=== PATIENT | female | born 1970 | race Caucasian/White ===

== ENCOUNTER 2024-05-15 13:34 | Emergency (ER) | payer MEDICAID, SELFPAY ==
[2024-05-15 13:35] VITALS: BP 181/93; PULSE 84; RESP 20; TEMP 36.8; O2SAT 97
[2024-05-15 13:57] VITALS: PULSE 90; RESP 19; O2SAT 98
--- NOTE | 2024-05-15 14:32 | XR_ITS ---
Examination: PA lateral chest 2 views TECHNIQUE: Upright PA lateral chest 2 views Exam date and time: May 15, 2024 1800 hours Comparison June 29, 2023 INDICATIONS: High blood pressure the last 2 days. FINDINGS: COPD with prominent hyperexpansion Normal heart size No pneumonia or pulmonary edema IMPRESSION: COPD with prominent hyperexpansion
--- NOTE | 2024-05-15 14:32 | EKG_ITS ---
[facility] Test Date: 2024-05-15 Pat Name: DESIREE LOPEZ Department: Room: - Gender: Female [employer] Up Assembler: : 1970 Requested By: Enoc Delaney Order Number: [id number] Reading MD: Enoc Delaney Measurements Intervals [place] Rate: 88 P: 75 MI: 137 QRS: 66 QRSD: 88 T: 39 QT: 366 QTc: 444 Interpretive Statements SINUS RHYTHM MINIMAL VOLTAGE CRITERIA FOR LVH, CONSIDER NORMAL VARIANT [MEETS CRITERIA IN ONE OF: R(aVL), S(V1), R(V5), R(V5/V6)+S(V1)] Compared to ECG 06/26/2023 11:44:24 Sinus tachycardia no longer present T-wave abnormality no longer present /store/S0/[id number]/ecg/[id number].pdf
--- NOTE | 2024-05-15 14:32 | PD.EDRME ---
Rapid Medical Screening Exam RME Arrival date/time: 05/15/24 13:34 53-year-old female with a history of COPD presents to the emergency room with a chief complaint of feeling clammy, elevated blood pressure, and palpitations x1 day. I have greeted and performed a focused initial assessment of this patient. A comprehensive ED assessment and evaluation of the patient, analysis of all test results, and completion of the medical decision making process will be conducted by additional ED providers. Chief Complaint: Recheck/Abnormal Lab/Rx Time Seen by Provider: 05/15/24 14:12 Vital signs: Vital Signs Temperature 98.2 F 05/15/24 13:35 Pulse Rate 84 05/15/24 13:35 Respiratory Rate 20 05/15/24 13:35 Blood Pressure 181/93 H 05/15/24 13:35 Pulse Oximetry (%) 97 05/15/24 13:35 Oxygen Delivery Method Room Air 05/15/24 13:35 Vital signs reviewed by provider: Yes
[2024-05-15 15:00] LABS: Basophils # (Auto) 0.1 Thou/mm3 (0.0-0.2); Basophils % (Auto) 1 % (0-2.5); Eosinophils # (Auto) 0.1 Thou/mm3 (0.0-0.5); Eosinophils % (Auto) 2 % (0-10); Hematocrit 39.5 % (36.0-46.0); Hemoglobin 13.7 g/dL (12.0-16.0); Immature Granulocytes % (Auto) 1 % (0-0); Immature Granulocytes Auto 0.05 Thou/mm3 (0.00-0.00); Lymphocytes # (Auto) 1.1 Thou/mm3 (1.0-4.8); Lymphocytes % (Auto) 13 % (10-50); Mean Corpuscular HGB Conc 34.7 g/dl (31.0-37.0); Mean Corpuscular Hemoglobin 29.8 pg (25.0-35.0); Mean Corpuscular Volume 86 fL (80-100); Monocytes # (Auto) 0.8 Thou/mm3 (0.0-0.8); Monocytes % (Auto) 10 % (0-12); Neutrophils # (Auto) 5.9 Thou/mm3 (1.8-7.7); Neutrophils % (Auto) 74 % (37-80); Nucleated Red Blood Cell % 0 /100 WBC (0); Platelet Count 223 Thou/mm3 (140-440); RDW Standard Deviation 41.2 fL (36.4-46.3); Red Blood Count 4.59 Miln/mm3 (4.00-5.20)
[2024-05-15 15:17] LABS: B-Type Natriuretic Peptide 22 pg/mL (0-100)
[2024-05-15 15:24] LABS: Alanine Aminotransferase 63 U/L (10-49); Albumin, Serum 4.9 gm/dL (3.5-5.0); Albumin/Globulin Ratio 1.8 (1.2-2.2); Alkaline Phosphatase 105 U/L (46-116); Anion Gap 7 (7-16); Aspartate Amino Transferase 108 U/L (0-34); BUN/Creatinine Ratio 10 Ratio (12-20); Bilirubin,Total 0.6 mg/dL (0.3-1.2); Blood Urea Nitrogen 6 mg/dL (9-23); Calcium 9.7 mg/dL (8.3-10.6); Calcium (Corrected) 9.7 mg/dL (8.5-10.1); Carbon Dioxide 27.4 mMol/L (20.0-31.0); Chloride 96 mMol/L (98-107); Creatinine (Component) 0.6 mg/dL (0.6-1.3); Globulin 2.8 gm/dL (2.3-3.5); Glucose 130 mg/dL (74-106); Magnesium 1.9 mg/dL (1.6-2.6); Osmolality,Calculated 260 (275-295); Potassium 4.4 mMol/L (3.4-5.1); Sodium 130 mMol/L (136-145); Total Protein 7.7 gm/dL (5.7-8.2); Troponin I < 0.020 ng/mL (0.0-0.045); eGFR > 60 See Note
--- NOTE | 2024-05-15 18:24 | PD.EDRECHK ---
ED Recheck Abnl Lab Rx-RME/HPI General Chief Complaint: Recheck/Abnormal Lab/Rx Stated Complaint: SOB HIGH BLOOD PRESSURE Time Seen by Provider: 05/15/24 14:12 Arrival date/time: 05/15/24 13:34 RME / HPI RME / HPI narrative: 05/15/24 13:34 53-year-old female with a history of COPD presents to the emergency room with a chief complaint of feeling clammy, elevated blood pressure, and palpitations x1 day. I have greeted and performed a focused initial assessment of this patient. A comprehensive ED assessment and evaluation of the patient, analysis of all test results, and completion of the medical decision making process will be conducted by additional ED providers. ------- This section includes all my notes and documentations, including HPI, PE, and ED course. Gilberto Ortega MD HPI: 53yo female with a history of COPD on 2L presents to the ED for a chief complaint of elevated blood pressure. Patient states she's been feeling clammy and more short of breath than normal, reporting she checked her blood pressure and was noted to be high, so she came in for evaluation. She reports associated productive cough with clearish-yellow phlegm. She denies any fever, chills or any other associated symptoms. She is not on antihypertensives. No other complaints reported. ROS: All negative except as documented in HPI. Physical Exam: General: Alert and oriented. Mild respiratory distress. Eyes: Conjunctivae and lids clear. ENT: No nasal congestion. Neck: Supple. Heart: RRR. Lungs: In mild respiratory distress. Decreased air movement. Diffuse wheezing. No rhonchi, rales. Abdomen: Soft and nontender. Legs: No clubbing, cyanosis, edema. Skin: Warm and dry. Neuro: Alert and oriented X 3. I reviewed all diagnostic test results. At this point, diagnoses include COPD. Treatment here included Prednisone, Cloniding, Levalbuterol, and NS Rt Solution. Significant improvement noted. Recommended a trial of outpatient treatment. Based on my best medical judgment, made decision no further evaluation or treatment indicated at this time. Patient understands and agrees to the discharge instructions customized and printed, see below. Discharge instructions from Dr. Ortega: --No physical exertion for 3 days to help rest the lungs. ?No smoking or exposure to smoking or pets or dust or cold air. --Zithromax to kill the germs causing the bronchitis. --Prednisone to help decrease the swelling in the airways. --Albuterol 2 puffs every 4-6 hours for 3 days to help keep the airways open. Then as needed for cough or shortness of breath. --Clonidine 0.1 mg every morning and every night to decrease BP. --See a private doctor on 05/17/2024 for recheck and further care. --Seek immediate medical care with worsening or with any concerns. Gilberto Ortega MD Related Data Home Medications ?Medication ?Instructions ?Recorded ?Confirmed duloxetine 60 mg capsule,delayed 60 mg PO BID Depression #0 caps 10/28/14 06/27/23 release (Cymbalta) albuterol sulfate 90 mcg/actuation 2 puff inhalation [id number] PRN 06/27/23 06/27/23 aerosol inhaler (ProAir HFA) Wheezing clonazepam 0.5 mg tablet 0.5 mg PO QDAY 06/27/23 06/27/23 fluticasone furoate 200 1 mcg inhalation DAILY asthma 06/27/23 06/27/23 mcg/actuation blister powder for inhalation (Arnuity Ellipta) hydrocodone 10 mg-acetaminophen 1 tab PO DAILY 06/27/23 06/27/23 325 mg tablet Previous Rx's ?Medication ?Instructions ?Recorded albuterol sulfate 90 mcg/actuation 2 puff inhalation QID PRN 07/01/23 aerosol inhaler shortness of breath or wheezing #8.5 grams fluticasone furoate 200 1 inh inhalation QDAY #30 ea 07/01/23 mcg/actuation blister powder for inhalation (Arnuity Ellipta) azithromycin 500 mg tablet 500 mg PO QDAY 3 days #3 tabs 05/15/24 (Zithromax TRI-GIGI) clonidine HCl 0.1 mg tablet 0.1 mg PO BID #60 tabs 05/15/24 prednisone 20 mg tablet 40 mg PO BID 3 days #12 tabs 05/15/24 Allergies Allergy/AdvReac Type Severity Reaction Status Date / Time Sulfa (Sulfonamide Allergy Severe LIPS Verified 02/03/21 15:03 Antibiotics) SWELL, VOMITING saccharin Allergy Mild Nausea Verified 06/29/23 10:39 Review of Systems Review of Systems Systems Reviewed: All systems reviewed, normal except as documented ED Exam Narrative Physical exam: As noted in HPI. Course Quality Measures none Orders Category Date Time Status EKG (ED ONLY) *Do not use* NOW Care 05/15/24 14:32 Completed EKG (ED Only) Stat Exams 05/15/24 14:32 Draft XR chest 2V Stat Exams 05/15/24 14:32 Completed B-Type Natriuretic Peptide Stat Lab 05/15/24 14:55 Completed CBC Stat Lab 05/15/24 14:55 Completed Comprehensive Metabolic Panel Stat Lab 05/15/24 14:55 Completed Drug Screen,Urine Stat Lab 05/15/24 18:29 Received Magnesium Stat Lab 05/15/24 14:55 Completed Troponin I Stat Lab 05/15/24 14:55 Completed Urinalysis Stat Lab 05/15/24 18:29 Completed Levalbuterol Rt [Xopenex Rt Ellie] Med 05/15/24 18:29 Discontinued 1.25 mg INH X1 ONE Sodium Chloride Rt Ellie 0.9% [NS Rt Ellie 0.9%] Med 05/15/24 18:29 Active 6 ml INH PRN PRN cloNIDine HCL [Catapres] Med 05/15/24 18:29 Discontinued 0.3 mg PO X1 ONE predniSONE Med 05/15/24 18:29 Discontinued 80 mg PO X1 ONE Vital Signs Vital signs: Vital Signs Temperature 98.2 F 05/15/24 13:35 Pulse Rate 84 05/15/24 13:35 Respiratory Rate 20 05/15/24 13:35 Blood Pressure 181/93 H 05/15/24 13:35 Pulse Oximetry (%) 97 05/15/24 13:35 Oxygen Delivery Method Room Air 05/15/24 13:35 Recheck / Abnormal Lab / Rx MDM Narrative MDM Narrative:: Scribe Attestation: 05/15/24 Diane Villafana am scribing for and in the presence of Dr. Ortega. Patient data External records reviewed:: [facility] previous records (Per chart review, patient was admitted here on 06/26/23 for COPD.) Clinical information provided by:: patient Social determinants that could affect healthcare access:: none Patient has the following chronic illnesses:: COPD How is presenting disease/condition affected by chronic disease/condition?: exacerbated by Evaluation data The following diagnostics were reviewed and interpreted by me:: lab results, radiology exam(s) and EKG tracing(s) Lab and/or radiology exams considered but not ordered:: none Interpretation Summary: COPD exacerbation Medications / Prescriptions Medications or Prescriptions considered but not ordered:: none Medication administrations:: Medication Administration History Sodium Chloride (Sodium Chloride Rt Ellie 0.9% 3 Ml Nebu) 6 ml INH PRN PRN PRN Reason: SOLN Stop: 06/14/24 18:28 Last Admin: 05/15/24 18:47 Dose: 6 ml Documented By: PAR Discontinued Medications Clonidine (Clonidine Hcl 0.1 Mg Tablet) 0.3 mg PO X1 ONE Stop: 05/15/24 18:30 Last Admin: 05/15/24 19:05 Dose: 0.3 mg Documented By: Levalbuterol HCl (Levalbuterol Rt 1.25 Mg/0.5 Ml Nebu) 1.25 mg INH X1 ONE Stop: 05/15/24 18:30 Last Admin: 05/15/24 18:47 Dose: 1.25 mg Documented By: PAR Prednisone (Prednisone 20 Mg Tablet) 80 mg PO X1 ONE Stop: 05/15/24 18:30 Last Admin: 05/15/24 19:05 Dose: 80 mg Documented By: Prednisone, Cloniding, Levalbuterol, NS Rt Solution Consultations Consultation(s) initiated? (list below): No Diagnosis Recheck Differential Diagnosis: other (Pneumonia, COPD exacerbation, COVID, influenza, bronchitis) Most likely diagnosis given after review of the tests above:: COPD exacerbation Admission Indicated Admission indicated?: not indicated Explain why admission is indicated or not indicated:: No criteria for admission. Admission Request Was there a request for admission?: No Disposition Plan Disposition Plan: Discharge Discharge Attestation Discharge Attestation: The patient and all family members were given an opportunity to ask questions and understood the discharge instructions. Discharge instructions specifically effects, indications for sooner follow up or return to the emergency department, and the expected course of current diagnosis. Patient condition: Stable Discharge Plan Plan Patient Disposition: HOME (Self Care) Prescriptions/Referrals Prescriptions/Med Rec: New clonidine HCl 0.1 mg tablet 0.1 mg PO BID Qty: 60 0RF prednisone 20 mg tablet 40 mg PO BID 3 Days Qty: 12 0RF Taper: Prednisone Taper 20 mg DAILY for 2 Days and 0 Hour 10 mg DAILY for 2 Days and 0 Hour 5 mg DAILY for 7 Days and 0 Hour azithromycin [Zithromax TRI-GIGI] 500 mg tablet 500 mg PO QDAY 3 Days Qty: 3 0RF No Action duloxetine [Cymbalta] 60 MG capsule,delayed release(DR/EC) 60 mg PO BID Qty: 0 albuterol sulfate [ProAir HFA] 90 mcg/actuation Hfa Aerosol Inhaler 2 puff INHALATION [id number] PRN (Reason: Wheezing) Arnuity Ellipta 200 mcg/actuation Blister With Device 1 mcg INHALATION DAILY clonazepam 0.5 mg Tablet 0.5 mg PO QDAY hydrocodone-acetaminophen 10-325 mg Tablet 1 tab PO DAILY albuterol sulfate 90 mcg/actuation HFA aerosol inhaler 2 puff inhalation QID PRN (Reason: shortness of breath or wheezing) Qty: 8.5 0RF Arnuity Ellipta 200 mcg/actuation blister with device 1 inh inhalation QDAY Qty: 30 0RF Referrals: Chelsey Walsh PA-C [Primary Care Provider] - In 1 week Problem List Clinical Impression: COPD (chronic obstructive pulmonary disease) Patient/Caregiver Discharge Instructions Discharge Activity: activity as tolerated Education Materials: ED COPD Flare Additional Instructions: Discharge instructions from Dr. Ortega: --No physical exertion for 3 days to help rest the lungs. ?No smoking or exposure to smoking or pets or dust or cold air. --Zithromax to kill the germs causing the bronchitis. --Prednisone to help decrease the swelling in the airways. --Albuterol 2 puffs every 4-6 hours for 3 days to help keep the airways open. Then as needed for cough or shortness of breath. --Clonidine 0.1 mg every morning and every night to decrease BP. --See a private doctor on 05/17/2024 for recheck and further care. --Seek immediate medical care with worsening or with any concerns. Print Language: Czech Stand Alone Forms: Ana Maria Award Info., Patient Portal Info Letter
[2024-05-15 18:31] VITALS: BP 183/108; PULSE 65; RESP 26; TEMP 36.6; O2SAT 100
[2024-05-15] MEDS: LEVALBUTEROL RT 1.25 MG/0.5 ML NEBU INH (18:47)
[2024-05-15] MEDS: SODIUM CHLORIDE RT SOL 0.9% 3 ML NEBU 6 ML INH (18:47)
[2024-05-15 18:50] VITALS: PULSE 98; RESP 18; O2SAT 100
[2024-05-15 18:54] LABS: Collection Type, Urine Clean Catch; RBC,Urine 0 /hpf (0-3)
[2024-05-15 19:04] LABS: Bacteria,Urine Rare; Bilirubin,Urine Negative (Negative); Blood,Urine Negative (Negative); Clarity,Urine Clear (Clear/Hazy); Color,Urine Lt-Yellow (Lt Yel-Yel); Glucose, Urine Negative (Negative); Ketones,Urine 1+ (Negative); Leukocyte Esterase,Urine Positive (Negative); Nitrite,Urine Positive (Negative); PH,Urine 6.5 (5.0-7.0); Protein,Urine Negative (Neg - Trace); Specific Gravity,Urine 1.012 (1.001-1.035); Squamous Epithelial Cell,Urine 1 /hpf (0-5); Urobilinogen,Urine Negative mg/dL (0.0-1.0); WBC,Urine 17 /hpf (0-5)
[2024-05-15 19:05] VITALS: BP 183/108; PULSE 65
[2024-05-15] MEDS: predniSONE 20 MG TABLET 80 MG PO (19:05)
[2024-05-15] MEDS: cloNIDine HCL 0.1 MG TABLET 0.3 MG PO (19:05)
[2024-05-15 19:20] LABS: Amphetamine/Methamp Scrn,U Negative (Negative); Barbiturate Screen,Urine Negative (Negative); Benzodiazepines Screen,Urine Negative (Negative); Benzoylecgonine Screen, Ur Negative (Negative); Fentanyl Screen,Urine Negative (Negative); Opiate Screen,Urine Positive (Negative); THC Screen,Urine Negative (Negative)
== END 2024-05-15 19:45 | disposition home or self-care (01) ==
PROVIDERS: Nurse Practitioner Family; Emergency Provider Emergency Medicine; PCP Physician Assistant
DX: J44.9 Chronic obstructive pulmonary disease, unspecified (principal)
CPT/HCPCS: 36415; 71046; 80053; 80307; 81001; 83735; 83880; 84484; 85025; 93005; 94640; 99283; J7512; A9270

== ENCOUNTER → 2024-10-02 | Outpatient (CLI) | payer MEDICAID, SELFPAY ==
--- NOTE | 2024-10-02 14:30 | XR_ITS ---
Examination: Breast ultrasound, unilateral, left complete Date and time of exam: October 02, 2024 1437 hours INDICATIONS: Left breast pain and swelling beginning a few weeks ago, family history breast cancer, mother, sister Technique: Real-time talbert scale ultrasonographic imaging performed left breast including all 4 quadrants as well as nipple retroareolar and axillary region. Findings: No cystic or solid mass IMPRESSION: BI-RADS Category 1: Negative study
== END | disposition home or self-care (01) ==
LOC: CDIM 14:18
PROVIDERS: PCP Physician Assistant; Referring Provider Physician Assistant; Visit Provider Physician Assistant
DX: N64.4 Mastodynia (principal)
CPT/HCPCS: 76641

== ENCOUNTER 2025-04-02 08:53 | Emergency (ER) | payer MEDICAID, SELFPAY ==
[2025-04-02 08:55] VITALS: BP 181/105; PULSE 77; PULSE 92; RESP 16; RESP 20; TEMP 37.1; O2SAT 95; BMI 23.7
--- NOTE | 2025-04-02 08:57 | PD.EDWEAK ---
ED Weakness RME/HPI General Chief complaint: Syncope / Near Syncope Stated complaint: NEAR SYNCOPAL EPISODE Time Seen by Provider: 04/02/25 08:59 Arrival date/time: 04/02/25 08:53 RME / HPI RME / HPI Narrative: See [facility] for Dr. Ortega's HPI documentation. Related Data Home Medications ?Medication ?Instructions ?Recorded ?Confirmed duloxetine 60 mg capsule,delayed 60 mg PO BID Depression #0 caps 10/28/14 06/27/23 release (Cymbalta) albuterol sulfate 90 mcg/actuation 2 puff inhalation [id number] PRN 06/27/23 06/27/23 aerosol inhaler (ProAir HFA) Wheezing clonazepam 0.5 mg tablet 0.5 mg PO QDAY 06/27/23 06/27/23 fluticasone furoate 200 1 mcg inhalation DAILY asthma 06/27/23 06/27/23 mcg/actuation blister powder for inhalation (Arnuity Ellipta) hydrocodone 10 mg-acetaminophen 1 tab PO DAILY 06/27/23 06/27/23 325 mg tablet Previous Rx's ?Medication ?Instructions ?Recorded albuterol sulfate 90 mcg/actuation 2 puff inhalation QID PRN 07/01/23 aerosol inhaler shortness of breath or wheezing #8.5 grams fluticasone furoate 200 1 inh inhalation QDAY #30 ea 07/01/23 mcg/actuation blister powder for inhalation (Arnuity Ellipta) clonidine HCl 0.1 mg tablet 0.1 mg PO BID #60 tabs 05/15/24 albuterol sulfate 90 mcg/actuation 2 puff inhalation Q6H PRN 04/02/25 aerosol inhaler shortness of breath or wheezing #8.5 grams clonidine HCl 0.1 mg tablet 0.1 mg PO BID #60 tabs 04/02/25 ondansetron 4 mg disintegrating 4 mg PO TID PRN nausea and 04/02/25 tablet vomiting 30 days #10 tabs prednisone 50 mg tablet 50 mg PO BID 2 days #4 tabs 04/02/25 scopolamine base 1 mg over 3 days 1 mg topical .q72 hours PRN 04/02/25 transdermal patch (Transderm-Scop) dizziness or vertigo #4 ea Allergies Allergy/AdvReac Type Severity Reaction Status Date / Time codeine Allergy Severe Abdominal Verified 04/02/25 12:34 Pain Sulfa (Sulfonamide Allergy Severe LIPS Verified 02/03/21 15:03 Antibiotics) SWELL, VOMITING saccharin Allergy Mild Nausea Verified 06/29/23 10:39 Review of Systems Review of Systems Systems Reviewed: All systems reviewed, normal except as documented Past Medical History Past Medical History NEUROLOGIC: Positive Seizures CARDIAC: Positive Cardiac Disorders and Angina RESPIRATORY: Positive Chronic Obstructive Pulmonary Disease (COPD), Bronchitis and Pneumonia GASTROINTESTINAL: Positive Gastroesophageal Reflux Disease MUSCULOSKELETAL: Positive Arthritis and Fibromyalgia PSYCHO/SOCIAL: Positive Depression and Anxiety OTHER HISTORY: Positive Falls Family History FAMILY HISTORY: Negative Family Cardiac Disorders Surgical History SURGICAL: Positive Tonsillectomy Social History SMOKING STATUS: Never smoker SECOND HAND EXPOSURE: Yes ED Exam Narrative Physical exam: See [facility] for Dr. Ortega's physical exam documentation. Course Quality Measures none Orders Category Date Time Status Bedside COVID-19 Antigen Test NOW Care 04/02/25 08:56 Completed Bedside Influenza A&B Antigen Test NOW Care 04/02/25 08:57 Completed EKG (ED ONLY) *Do not use* NOW Care 04/02/25 08:58 Completed Saline [Insert IV] NOW Care 04/02/25 08:57 Completed Straight [In and Out Catheter] X1 Care 04/02/25 08:[address] head/brain wo con Stat Exams 04/02/25 08:58 Completed EKG (ED Only) Stat Exams 04/02/25 08:58 Draft XR chest 1V portable Stat Exams 04/02/25 08:58 Completed ABG [Arterial Blood Gas] Stat Lab 04/02/25 09:37 Completed BNP [B-Type Natriuretic Peptide] Stat Lab 04/02/25 09:30 Completed Bilirubin,Direct Stat Lab 04/02/25 09:30 Completed Blood Culture (Lab) Stat Lab 04/02/25 10:00 Results CBC Stat Lab 04/02/25 09:30 Completed CMP [Comprehensive Metabolic Panel] Stat Lab 04/02/25 09:30 Completed CRP [C-Reactive Protein] Stat Lab 04/02/25 09:30 Completed D-Dimer Stat Lab 04/02/25 09:30 Completed ESR [Sed Rate (ESR)] Stat Lab 04/02/25 09:30 Completed HCG,Qualitative Serum Stat Lab 04/02/25 09:30 Completed Hemoglobin A1C [Glycohemoglobin w (eAG)] Stat Lab 04/02/25 09:30 Completed Lactate (Lactic Acid) Stat Lab 04/02/25 09:30 Completed Magnesium Stat Lab 04/02/25 09:30 Completed Procalcitonin Stat Lab 04/02/25 09:30 Completed TSH [Thyroid Stimulating Hormone] Stat Lab 04/02/25 09:30 Completed Troponin I Stat Lab 04/02/25 09:30 Completed UA, C/S IF [Urinalysis, C/S if Indicated] Stat Lab 04/02/25 10:37 Completed Urine Culture Stat Lab 04/02/25 10:37 Received ACETAMINOPHEN w/COD 300-30 [Tylenol w/Cod #3] Med 04/02/25 12:16 Discontinued 2 tab PO X1 ONE Albuterol/Ipratr Rt Ellie [Duoneb Rt Ellie] Med 04/02/25 08:57 Discontinued 3 ml INH X1 ONE DiphenhydrAMINE INJ [Benadryl Inj] Med 04/02/25 08:57 Discontinued 50 mg IVP X1 STA HYDROcodone*/APAP 5/325 [Hudson 5/325] Med 04/02/25 12:36 Discontinued 2 tab PO X1 ONE MethylPREDNISolone.* [SoluMEDROL Inj] Med 04/02/25 08:57 Discontinued 125 mg IVP X1 ONE Ondansetron Inj [Zofran Inj] Med 04/02/25 08:57 Discontinued 4 mg IVP X1 ONE Ringers Lactated 1000 ml [Lactated Ringers] 1,000 ml Med 04/02/25 08:57 Discontinued IV 500 mls/hr Scopolamine [Transderm-Scop Patch] Med 04/02/25 08:57 Discontinued 1 mg TOP X1 ONE cloNIDine HCL [Catapres] Med 04/02/25 09:28 Discontinued 0.3 mg PO X1 ONE Vital Signs Vital signs: Vital Signs Temperature 98.7 F 04/02/25 08:55 Pulse Rate 77 04/02/25 08:55 Respiratory Rate 20 04/02/25 08:55 Blood Pressure 181/105 H 04/02/25 08:55 Pulse Oximetry (%) 95 04/02/25 08:55 Oxygen Delivery Method Room Air 04/02/25 08:55 Pulse ox is 95% on room air which is adequate. Weakness MDM Narrative MDM Narrative:: This section includes all my notes and documentations, including HPI, PE, and ED course. Gilberto Ortega MD HPI: 54-year-old female here with about a week history of worsening cough, productive cough, purulent sputum, and dyspnea. In the past few days, she reports spinning sensation with nausea when sitting up or standing up. No other complaints. ROS: All negative except as documented in HPI. Physical Exam: General: Alert and oriented. No acute distress when remaining still. High BP noted. Eyes: Conjunctivae and lids clear. PERRL. EOMI. ENT: No nasal congestion. Neck: Supple. Heart: RRR. Lungs: No respiratory distress. Good air movement with rhonchi. Abdomen: Soft and nontender. Normal bowel sounds. No distension. No rebound or guarding. Back: No CVA tenderness. Skin: Warm and dry. Neuro: Alert and oriented X 3. Cranial nerves II through XII grossly normal. No peripheral motor deficits. I reviewed EMS notes. I reviewed all diagnostic test results: My interpretation of the EKG: NSR (74 bpm) with no ST-T changes. My interpretation of the chest x-ray is NAD. My review of the head CT report is NAD. Blood tests and urine tests unremarkable. Covid/Influenza are negative. At this point, diagnoses include: COPD Vertigo Hypertensive urgency Treatment here included: IVF Albuterol neb treatment Solumedrol 125 mg IV Benadryl 50 mg IV Zofran 4 mg IV Scopolamine 1 mg patch Clonidine 0.3 mg PO Significant improvement noted. Recommended a trial of outpatient treatment. Based on my best medical judgment, made decision no further evaluation or treatment indicated at this time. Patient understands and agrees to the discharge instructions customized and printed, see below. Discharge instructions from Dr. Ortega: 1. After extensive evaluation, there is no life-threatening condition.? Such as stroke or brain tumor or heart attack or pulmonary embolism (blood clots in your lungs) or pneumothorax (collapsed lung). 2. Your diagnoses include Vertigo and COPD and High BP. See attached handouts. 3. For Vertigo, use Scopolamine patches as needed. 4. For COPD: -- No physical exertion for 3 days to help rest the lungs. -- No smoking or exposure to smoking or pets or dust or cold or humidity. -- Prednisone to help decrease the swelling in the airways. -- Albuterol 2 puffs every 4-6 hours for 3 days to help keep the airways open. Then as needed for cough or shortness of breath. 5. For high BP, take Clonidine as needed until seen by your private doctor. Take Clonidine 0.1 mg pill(s) every 12 hours as needed based on SBP (higher number of BP). SBP > 140, take one pill. SBP > 160, take two pills. SBP > 180, take three pills. SBP > 200, take four pills. 6. See a private doctor on 04/04/25 for recheck. Ask to review all test results and official radiology reports, to make sure you receive all necessary follow-ups and monitoring. 7. Seek immediate medical care with worsening or with any concerns.?? Gilberto Ortega MD Patient data External records reviewed:: [facility] previous records and EMS form Clinical information provided by:: patient and EMS Social determinants that could affect healthcare access:: none Patient has the following chronic illnesses:: COPD on 2L supplemental oxygen, fibromyalgia How is presenting disease/condition affected by chronic disease/condition?: exacerbated by Evaluation data The following diagnostics were reviewed and interpreted by me:: lab results, radiology exam(s) and EKG tracing(s) (My interpretation of the EKG: NSR (74 bpm) with no ST-T changes. Gilberto Ortega MD) Lab and/or radiology exams considered but not ordered:: None Interpretation Summary: I reviewed all diagnostic test results: My interpretation of the EKG: NSR (74 bpm) with no ST-T changes. My interpretation of the chest x-ray is NAD. My review of the head CT report is NAD. Blood tests and urine tests unremarkable. Covid/Influenza are negative. Medications / Prescriptions Medications or Prescriptions considered but not ordered:: None Medication administrations:: Medication Administration History Discontinued Medications Acetaminophen/Codeine Phosphate (Acetaminophen W/Cod 300-30 Tablet) 2 tab PO X1 ONE Stop: 04/02/25 12:17 Last Admin: 04/02/25 12:43 Dose: Not Given Documented By: Non-Admin Reason: Cancelled by Provider Hydrocodone Bitart/Acetaminophen (Hydrocodone/Apap 5/325 Tablet) 2 tab PO X1 ONE Stop: 04/02/25 12:37 Last Admin: 04/02/25 12:41 Dose: 2 tab Documented By: ARUN Albuterol/Ipratropium (Albuterol/Ipratropium (Duoneb) Rt Ellie 3 Ml Nebu) 3 ml INH X1 ONE Stop: 04/02/25 08:58 Last Admin: 04/02/25 09:23 Dose: 3 ml Documented By: MOSES Clonidine (Clonidine Hcl 0.1 Mg Tablet) 0.3 mg PO X1 ONE Stop: 04/02/25 09:29 Last Admin: 04/02/25 09:48 Dose: 0.3 mg Documented By: KELLY Diphenhydramine HCl (Diphenhydramine Inj 50 Mg/Ml Vial) 50 mg IVP X1 STA Stop: 04/02/25 08:58 Last Admin: 04/02/25 09:46 Dose: 50 mg Documented By: KELLY Lactated Ringer's (Lactated Ringers) 1,000 mls @ 500 mls/hr IV .Q2H ONE Stop: 04/02/25 10:56 Last Infusion: 04/02/25 12:49 Dose: Infused Documented By: [facility] Admin: 04/02/25 09:47 Dose: 500 mls/hr Documented By: KELLY Methylprednisolone Sodium Succinate (Methylprednisolone Sod Succ 62.5 Mg/Ml 2ml Vial) 125 mg IVP X1 ONE Stop: 04/02/25 08:58 Last Admin: 04/02/25 09:44 Dose: 125 mg Documented By: KELLY Ondansetron HCl (Ondansetron Inj 2 Mg/Ml Inj 2 Ml) 4 mg IVP X1 ONE; Protocol Stop: 04/02/25 08:58 Last Admin: 04/02/25 09:46 Dose: 4 mg Documented By: KELLY Scopolamine (Scopolamine 1 Mg Tdsy) 1 mg TOP X1 ONE Stop: 04/02/25 08:58 Last Admin: 04/02/25 09:48 Dose: 1 mg Documented By: KELLY Treatment here included: IVF Albuterol neb treatment Solumedrol 125 mg IV Benadryl 50 mg IV Zofran 4 mg IV Scopolamine 1 mg patch Clonidine 0.3 mg PO Consultations Consultation(s) initiated? (list below): No Diagnosis Weakness Differential Diagnosis: acute myocardial infarction, anemia, hypoglycemia, hypothyroidism, rhabdomyolysis, sepsis and dehydration Most likely diagnosis given after review of the tests above:: At this point, diagnoses include: COPD Vertigo Hypertensive urgency Admission Indicated Admission indicated?: not indicated Explain why admission is indicated or not indicated:: With significant improvement and no condition needing emergent intervention, there was no indication for admission. Admission Request Was there a request for admission?: No Disposition Plan Disposition Plan: Discharge Discharge Attestation Discharge Attestation: The patient and all family members were given an opportunity to ask questions and understood the discharge instructions. Discharge instructions specifically effects, indications for sooner follow up or return to the emergency department, and the expected course of current diagnosis. Patient condition: Stable Discharge Plan Plan Patient Disposition: HOME (Self Care) Prescriptions/Referrals Prescriptions/Med Rec: New prednisone 50 mg tablet 50 mg PO BID 2 Days Qty: 4 0RF scopolamine base [Transderm-Scop] 1 mg over 3 days patch 3 day 1 mg topical .q72 hours PRN (Reason: dizziness or vertigo) Qty: 4 0RF albuterol sulfate 90 mcg/actuation HFA aerosol inhaler 2 puff inhalation Q6H PRN (Reason: shortness of breath or wheezing) Qty: 8.5 0RF ondansetron 4 mg tablet,disintegrating 4 mg PO TID PRN (Reason: nausea and vomiting) 30 Days Qty: 10 0RF clonidine HCl 0.1 mg tablet 0.1 mg PO BID Qty: 60 0RF No Action duloxetine [Cymbalta] 60 MG capsule,delayed release(DR/EC) 60 mg PO BID Qty: 0 albuterol sulfate [ProAir HFA] 90 mcg/actuation Hfa Aerosol Inhaler 2 puff INHALATION [id number] PRN (Reason: Wheezing) Arnuity Ellipta 200 mcg/actuation Blister With Device 1 mcg INHALATION DAILY clonazepam 0.5 mg Tablet 0.5 mg PO QDAY hydrocodone-acetaminophen 10-325 mg Tablet 1 tab PO DAILY albuterol sulfate 90 mcg/actuation HFA aerosol inhaler 2 puff inhalation QID PRN (Reason: shortness of breath or wheezing) Qty: 8.5 0RF Arnuity Ellipta 200 mcg/actuation blister with device 1 inh inhalation QDAY Qty: 30 0RF clonidine HCl 0.1 mg tablet 0.1 mg PO BID Qty: 60 0RF Referrals: Chelsey Walsh PA-C [Primary Care Provider, Family Practice] - In 1 week Problem List Clinical Impression: COPD (chronic obstructive pulmonary disease), Vertigo, Hypertensive urgency Patient/Caregiver Discharge Instructions Discharge Activity: activity as tolerated Education Materials: ED COPD Flare, ED Hypertension, Established, ED Vertigo, Unspecified Additional Instructions: Discharge instructions from Dr. Ortega: 1. After extensive evaluation, there is no life-threatening condition.? Such as stroke or brain tumor or heart attack or pulmonary embolism (blood clots in your lungs) or pneumothorax (collapsed lung). 2. Your diagnoses include Vertigo and COPD and High BP. See attached handouts. 3. For Vertigo, use Scopolamine patches as needed. 4. For COPD: -- No physical exertion for 3 days to help rest the lungs. -- No smoking or exposure to smoking or pets or dust or cold or humidity. -- Prednisone to help decrease the swelling in the airways. -- Albuterol 2 puffs every 4-6 hours for 3 days to help keep the airways open. Then as needed for cough or shortness of breath. 5. For high BP, take Clonidine as needed until seen by your private doctor. Take Clonidine 0.1 mg pill(s) every 12 hours as needed based on SBP (higher number of BP). SBP > 140, take one pill. SBP > 160, take two pills. SBP > 180, take three pills. SBP > 200, take four pills. 6. See a private doctor on 04/04/25 for recheck. Ask to review all test results and official radiology reports, to make sure you receive all necessary follow-ups and monitoring. 7. Seek immediate medical care with worsening or with any concerns.?? Print Language: Martiniquais Stand Alone Forms: Ana Maria Award Info., Patient Portal Info Letter
--- NOTE | 2025-04-02 08:58 | XR_ITS ---
Study: Head CT. INDICATION: Near syncope this day. TECHNIQUE: 5 mm slice thickness without contrast. 5 mm sagittal and coronal reformats. Radiation dose 9 9 2 mGy centimeters with dose reduction technique. 312 images at 0909 hours 02 April 2025. FINDINGS: The lateral ventricles are normal in size and contour. There is no midline shift, intracranial bleed, mass, cortical edema or parenchymal calcification. The white-talbert junctions are well visualized. There is no definite focal lesion of the brainstem or cerebellum. There may be a 4 mm lacunar in the anterior limb of the left internal capsule. Subtle areas of diminished density are seen in the martinez radiata bilaterally. Since the prior study of 19 May 2014, sulcal anatomy has become more prominent along with very subtle bifrontal cortical withdrawal from the inner table. Lateral ventricle volumes have also increased. Incidental note is made of a small osteoma arising from the inner table of the right frontal bone. The scalp, skull, mastoid air cells are normal in appearance. Mucoperiosteal thickening is noted throughout the sphenoid sinus. There is minimal atheromatous calcific plaque in the cavernous carotid arteries. The sella turcica and its contents are grossly normal in appearance. Impression: 1. No acute diagnostic abnormality. 2. Slight subependymal and cortical atrophy in the 9 years since the prior examination. 3. Mild small vessel white matter disease.
--- NOTE | 2025-04-02 08:58 | XR_ITS ---
EXAMINATION: AP chest single view TECHNIQUE: AP portable semiupright chest single view Date and time: April 02, 2025, 1021 hours INDICATIONS: Sudden onset chest pain beginning 4 days ago. FINDINGS: Significant hyperexpansion Normal heart size No lobar pneumonia or pulmonary edema IMPRESSION: COPD with significant hyperexpansion
--- NOTE | 2025-04-02 08:58 | EKG_ITS ---
[facility] Test Date: 2025-04-02 Pat Name: DESIREE LOPEZ Department: Room: - Gender: Female News Analyst: : 1970 Requested By: Gilberto Lara Order Number: [id number] Reading MD: Gilberto Lara Measurements Intervals Parsons Rate: 74 P: 69 AR: 136 QRS: 66 QRSD: 98 T: 53 QT: 415 QTc: 463 Interpretive Statements SINUS RHYTHM Compared to ECG 05/15/2024 14:36:51 No significant changes /store/S0/[id number]
[2025-04-02] MEDS: ALBUTEROL/IPRATROPIUM (Duoneb) RT SOL 3 ML NEBU INH (09:23)
[2025-04-02 09:25] VITALS: PULSE 73; RESP 19; O2SAT 97
[2025-04-02 09:41] LABS: Base Excess 1 (-3-3); HCO3 27 mEq/L (20-26); Inspired O2, VO2 Liters 2 L/min; O2 Saturation 98 % (91-98); PCO2 44 mmHg (32.0-48.0); PO2 94 mmHg (83-108); pH, Arterial 7.39 (7.35-7.45)
[2025-04-02 09:41] LABS: Lactate (Lactic Acid) 2.5 mMol/L (0.4-2.0)
[2025-04-02 09:43] LABS: Basophils # (Auto) 0.1 Thou/mm3 (0.0-0.2); Basophils % (Auto) 1 % (0-2.5); Eosinophils # (Auto) 0.2 Thou/mm3 (0.0-0.5); Eosinophils % (Auto) 2 % (0-10); Hematocrit 39.5 % (36.0-46.0); Hemoglobin 13.5 g/dL (12.0-16.0); Immature Granulocytes Auto 0.06 Thou/mm3 (0.00-0.00); Lymphocytes # (Auto) 1.1 Thou/mm3 (1.0-4.8); Lymphocytes % (Auto) 13 % (10-50); Mean Corpuscular HGB Conc 34.2 g/dl (31.0-37.0); Mean Corpuscular Hemoglobin 31.0 pg (25.0-35.0); Mean Corpuscular Volume 91 fL (80-100); Monocytes # (Auto) 0.8 Thou/mm3 (0.0-0.8); Monocytes % (Auto) 10 % (0-12); Neutrophils # (Auto) 6.4 Thou/mm3 (1.8-7.7); Neutrophils % (Auto) 74 % (37-80); Nucleated Red Blood Cell # 0.00 Thou/mm3 (0.00-0.00); Nucleated Red Blood Cell % 0 /100 WBC (0); Platelet Count 223 Thou/mm3 (140-440); RDW Standard Deviation 41.0 fL (36.4-46.3); Red Blood Count 4.36 Miln/mm3 (4.00-5.20); White Blood Count 8.6 Thou/mm3 (3.6-11.0)
[2025-04-02 09:43] LABS: Allen Test Performed/OK; Puncture Site Left Radial
[2025-04-02] MEDS: MethylPREDNISolone SOD SUCC 62.5 MG/ML 2ML VIAL 125 MG IVP (09:44)
[2025-04-02] MEDS: ONDANSETRON INJ 2 MG/ML INJ 2 ML 4 MG IVP (09:46)
[2025-04-02] MEDS: RINGERS LACTATED 1000 ML 1,000 ML 500 ML IV (09:47)
[2025-04-02 09:48] VITALS: BP 186/101; PULSE 84
[2025-04-02] MEDS: SCOPOLAMINE 1 MG TDSY TOP (09:48)
[2025-04-02 10:00] LABS: D-Dimer < 250 ng/mL (<600)
[2025-04-02 10:04] VITALS: BP 183/95; PULSE 87; RESP 16; O2SAT 98
[2025-04-02 10:04] LABS: Sed Rate (ESR) 18 mm/hr (0-30)
[2025-04-02 10:17] LABS: Glucose Estimated Average 126 mg/dL (80-131); Hemoglobin A1C 6.0 % Hgb (4.8-6.0)
[2025-04-02 10:20] LABS: Alanine Aminotransferase 41 U/L (10-49); Albumin, Serum 4.7 gm/dL (3.5-5.0); Albumin/Globulin Ratio 1.7 (1.2-2.2); Alkaline Phosphatase 98 U/L (46-116); Anion Gap 10 (7-16); Aspartate Amino Transferase 78 U/L (0-34); BUN/Creatinine Ratio 8 Ratio (12-20); Bilirubin,Direct 0.2 mg/dL (0.0-0.3); Bilirubin,Total 0.4 mg/dL (0.3-1.2); Blood Urea Nitrogen < 5 mg/dL (9-23); C-Reactive Protein < 0.5 mg/dL (0.0-0.9); Calcium 8.9 mg/dL (8.3-10.6); Calcium (Corrected) 8.9 mg/dL (8.5-10.1); Carbon Dioxide 24.0 mMol/L (20.0-31.0); Chloride 98 mMol/L (98-107); Creatinine (Component) 0.6 mg/dL (0.6-1.3); Estimated Creatinine Clearance 100.3 mL/min (>60); Globulin 2.7 gm/dL (2.3-3.5); Glucose 173 mg/dL (74-106); Magnesium 1.9 mg/dL (1.6-2.6); Osmolality,Calculated 265 (275-295); Potassium 4.5 mMol/L (3.4-5.1); Procalcitonin < 0.04 ng/ml (0.0-0.49); Sodium 132 mMol/L (136-145); Thyroid Stimulating Hormone 1.31 uIU/mL (0.55-4.78); Total Protein 7.4 gm/dL (5.7-8.2); Troponin I < 0.002 ng/mL (0.0-0.045); eGFR > 60 See Note
[2025-04-02 10:40] LABS: Collection Type, Urine Clean Catch
[2025-04-02 10:46] LABS: Bilirubin,Urine Negative (Negative); Blood,Urine Negative (Negative); Clarity,Urine Clear (Clear/Hazy); Color,Urine Lt Yellow (Lt Yel-Yel); Glucose, Urine Negative (Negative); Ketones,Urine Trace (Negative); Leukocyte Esterase,Urine 1+ (Negative); Nitrite,Urine Positive (Negative); PH,Urine 7.5 (5.0-7.0); Protein,Urine Negative (Neg - Trace); Specific Gravity,Urine 1.015 (1.001-1.035); Urobilinogen,Urine 0.2 mg/dL (0.0-1.0)
[2025-04-02 10:53] LABS: B-Type Natriuretic Peptide < 20 pg/mL (0-100)
[2025-04-02 10:57] VITALS: BP 168/113; PULSE 88; RESP 18; TEMP 37.2; O2SAT 95
[2025-04-02 11:08] LABS: Bacteria,Urine Rare; RBC,Urine 1 /hpf (0-3); Squamous Epithelial Cell,Urine 1 /hpf (0-5); WBC,Urine 3 /hpf (0-5)
[2025-04-02 11:10] LABS: Culture Indicated,Urine Yes
[2025-04-02 12:34] LABS: Reflex Lactate? Y
[2025-04-02] MEDS: HYDROcodone/APAP 5/325 TABLET 2 TAB PO (12:41)
[2025-04-02 12:50] VITALS: BP 162/108; PULSE 90; RESP 18; O2SAT 94
[2025-04-02 14:08] LABS: HCG,Qualitative Serum Negative
== END 2025-04-02 12:51 | disposition home or self-care (01) ==
PROVIDERS: Emergency Provider Emergency Medicine; PCP Physician Assistant
DX: J44.9 Chronic obstructive pulmonary disease, unspecified (principal); I16.0 Hypertensive urgency; R42 Dizziness and giddiness; R11.2 Nausea with vomiting, unspecified
CPT/HCPCS: 36415; 36600; 70450; 71045; 80053; 81001; 82248; 82803; 83036; 83605; 83735; 83880; 84145; 84443; 84484; 84703; 85025; 85379; 85652; 86140; 87040; 87077; 87086; 87186; 87502; 87635; 93005; 94640; 96361; 96374; 96375; 99285; A9270; J1200; J2405; J2919; J7120